=== PATIENT | male | born 1980 | race Caucasian/White ===

== ENCOUNTER 2017-11-18 17:36 | Emergency (ER) | payer OTHER ==
[~2017-11-18] VITALS: Ht 180.3 cm; Wt 83.9 kg
[2017-11-18 17:36] VITALS: BP_SYST 141
--- NOTE | 2017-11-18 17:40 | NUR ---
BROUGHT BACK TO BED #6 AFTER TRIAGE, REPORT GIVEN TO BRUCE
--- NOTE | 2017-11-18 17:50 | NUR ---
Pt presents to ER c/o blurred vision R eye, dizziness, confusion, slight slurred speech, gen weakness. Pt states these symptoms began around 1200 today. Respirations even and unlabored. Pt is AOX3, with some confusion. Pt denies any significant medical history, denies any pain. Mother at bedside.
--- NOTE | 2017-11-18 17:55 | NUR ---
Dr. Kruger at bedside.
--- NOTE | 2017-11-18 18:00 | NUR ---
# 20 gauge angiocath placed to RAC. Use of asceptic technique. Opsite placed over site. Blood return noted. Blood for lab drawn from site. Flushed with 10 cc of normal saline. No evidence of infiltration noted. Patient tolerated well.
--- NOTE | 2017-11-18 18:20 | NUR ---
Visual acuity tested on pt with Aly RANKIN. Both R and L eye 20/30.
[2017-11-18 18:31] LABS: BASOPHILS # (AUTO) 0.1 K/uL (0.0-0.2); BASOPHILS % (AUTO) 1.9 % (0.0-2.0); EOSINOPHILS # (AUTO) 0.2 K/uL (0.0-0.4); EOSINOPHILS % (AUTO) 2.1 % (0.0-4.0); HEMATOCRIT 49.1 % (36-54); HEMOGLOBIN 16.4 g/dL (14.0-18.0); LYMPHOCYTES # (AUTO) 2.5 K/uL (1.0-5.5); MEAN CORPUSCULAR HEMOGLOBIN 32 pg (27-31); MEAN CORPUSCULAR HGB CONC 33 % (32-36); MEAN CORPUSCULAR VOLUME 95 fL (79.0-98.0); MONOCYTES # (AUTO) 0.4 K/uL (0.0-1.0); MONOCYTES % (AUTO) 5.8 % (1.7-9.3); NEUTROPHILS # (AUTO) 4.4 K/uL (1.8-7.7); NEUTROPHILS % (AUTO) 57.2 % (40.0-70.0); PLATELET COUNT (AUTO) 335 K/uL (130-430); RED BLOOD CELL COUNT(AUTO) 5.15 MIL/uL (4.2-6.2); RED CELL DISTRIBUTION WIDTH 11.8 % (9.0-15.0); WHITE BLOOD COUNT (AUTO) 7.6 K/uL (4.8-10.8)
[2017-11-18 18:38] LABS: BARBITURATE, URINE NEGATIVE (NEG <=200); BENZODIAZEPINE, URINE NEGATIVE (NEG <=150); CANNABINOID, URINE NEGATIVE (NEG <=50); COCAINE, URINE NEGATIVE (NEG <=150); METHAMPHETAMINES SCREEN,URINE NEGATIVE (NEG <=500); OPIATE, URINE NEGATIVE (NEG <=100); PHENCYCLIDINE SCREEN,URINE NEGATIVE (NEG <=25); UR TRICYCLIC ANTIDEPRESSANTS NEGATIVE (NEG <=300); URINE AMPHETAMINE NEGATIVE (NEG <=500); URINE METHADONE NEGATIVE (NEG <=200); URINE OXYCODONE SCREEN NEGATIVE (NEG <=100); URINE PROPOXYPHENE SCREEN NEGATIVE (NEG <=300)
[2017-11-18 18:41] LABS: ANION GAP 5 (5-15); CALCIUM 9.6 mg/dL (8.4-11.0); CHLORIDE 102 mmol/L (98-107); CREATININE 1.24 mg/dL (0.55-1.30); GLUCOSE 135 mg/dL (70-99); POTASSIUM 3.9 mmol/L (3.5-5.1); SODIUM SERUM 138 mmol/L (136-145); UREA NITROGEN, BLOOD 19 mg/dL (8-21)
[2017-11-18 18:47] LABS: ALANINE AMINOTRANSFERASE 28 U/L (12-78); ALBUMIN 4.2 g/dL (3.4-4.8); ASPARTATE AMINOTRANSFERASE 27 U/L (10-37); TOTAL BILIRUBIN 0.8 mg/dL (0.0-1.0)
[2017-11-18 18:48] LABS: ACETAMINOPHEN < 1 ug/mL (1-30); GFR AFRICAN AMERICAN 84 mL/min (>90)
[2017-11-18 18:50] LABS: ALCOHOL, BLOOD < 3 mg/dL (<10)
--- NOTE | 2017-11-18 18:50 | NUR ---
Patient transported to radiology via gurney, accompanied by rad staff.
--- NOTE | 2017-11-18 19:05 | NUR ---
Returned from radiology, back to [facility].
--- NOTE | 2017-11-18 19:10 | NUR ---
Received report from David RANKIN.
[2017-11-18 20:07] VITALS: BP_SYST 134
--- NOTE | 2017-11-18 20:07 | NUR ---
Patient given written and verbal discharge instructions and verbalizes understanding. ER MD discussed with patient the results and treatment provided. Patient in stable condition. ID arm band removed. IV catheter removed intact and dressing applied, no active bleeding. Patient educated on pain management and to follow up with PMD. Pain Scale 0/10. Opportunity for questions provided and answered.
== END 2017-11-18 20:07 | disposition home or self-care (01) ==
LOC: SED 17:36
DX: H53.8 Other visual disturbances (principal); R51 Headache
CPT/HCPCS: 36415; 70450; 71045; 80053; 80307; 85025; 93005; 99285; G0480; G0482; J7030